=== PATIENT | male | born 1975 | race Caucasian/White ===

== ENCOUNTER 2019-11-04 20:02 | Inpatient (IN) | payer BC ==
[~2019-11-04] VITALS: Ht 172.7 cm; Wt 109.9 kg
[2019-11-04 20:24] VITALS: BP 104/68
[2019-11-04 20:30] LABS: BASO # 0.1 10*3/uL (0.0-0.1); BASO % 0.7 % (0.0-1.0); EOS # 0.1 10*3/uL (0.0-0.4); EOS % 1.1 % (1.0-4.0); HEMATOCRIT 43.2 % (42.0-52.0); LYMPH # 1.3 10*3/uL (1.3-4.4); LYMPH % 12.7 % (27.0-41.0); MEAN CELL VOLUME 95.6 fl (80.0-94.0); MEAN CORPUSCULAR HGB CONC 34.5 g/dl (33.0-37.0); MEAN PLATELET VOLUME 9.7 fl (9.6-12.3); MONO # 0.8 10*3/uL (0.1-1.0); MONO % 7.3 % (3.0-9.0); NEUT # 8.2 10*3/uL (2.3-7.9); NEUT % 77.8 % (47.0-73.0); PLATELET COUNT AUTOMATED 141 10*3/uL (130-400); RED BLOOD COUNT 4.52 10*6/uL (4.50-5.90); RED CELL DISTRI WIDTH 12.6 % (0-14.5); WHITE BLOOD COUNT 10.5 10*3/uL (4.8-10.8)
[2019-11-04 20:44] LABS: ACT PARTIAL THROMBO TIME 29.9 SECONDS (20.0-32.1); ALBUMIN 3.8 gm/dl (3.1-4.5); ALKALINE PHOSPHATASE 39 U/L (45-117); BUN 15 mg/dl (7-24); CHLORIDE 103 mmol/L (98-107); CREATININE 1.07 mg/dL (0.70-1.30); INTERNATIONAL NORM RATIO 1.2 (2.0-3.5); POTASSIUM 3.4 mmol/L (3.5-5.1); SGOT/AST 35 IU/L (3-35); SGPT/ALT 49 U/L (12-78); SODIUM 137 mmol/L (136-145); TOTAL PROTEIN 7.1 gm/dL (6.4-8.2)
[2019-11-04 20:45] LABS: TROPONIN I 0.018 ng/ml (<0.045)
[2019-11-05] VITALS (7 sets, daily range): BP systolic 92–115; BP diastolic 51–63
--- NOTE | 2019-11-05 | NUR ---
A 44, admitted to , under the services of SYDNEY Doss DO with a diagnosis of A FIB. Chief complaint is WHILE RUNNING [place] AT 1999, PATIENT DEVELOPED ;EFT SHOULDER AND NECK PAIN RADIATING INTO RIGHT JAW. STATES UNABLE TO FOCUS. Patient arrived via bed from ER. Monitor applied. Initial assessment completed. Vital signs taken and recorded. SYDNEY DOSS DO / DR CARY notified of admission to the unit. Orders received. See assessment for past medical history, medications and allergies. Patient and/or family oriented to unit. [facility] visitation policy reviewed. Clothing/patient valuable form completed. [employer]ES
[2019-11-05] MEDS ORDERED: FUROSEMIDE40 MG PO (00:17)
[2019-11-05] MEDS ORDERED: DIGOX125 MCG PO (00:18)
[2019-11-05] MEDS ORDERED: XARE20MG PO (00:19)
[2019-11-05] MEDS ORDERED: ENTRESTO 24 MG1 EACH PO (00:19)
[2019-11-05] MEDS ORDERED: ALLOPURINOL100 MG PO (00:20)
[2019-11-05] MEDS ORDERED: TRAZODONE150 MG PO (00:20)
[2019-11-05] MEDS ORDERED: COREG25 MG PO (00:21)
[2019-11-05] MEDS ORDERED: CARVEDILOL25 MG PO (00:21)
--- NOTE | 2019-11-05 01:45 | NUR ---
REQUESTING HOME MEDS. DR CARY CONTACTED AND INFORMED MED REC UP TO DATE
--- NOTE | 2019-11-05 02:20 | NUR ---
[facility] CONTACTED REGARDING PATIENT REQUESTING MEDS AND MEDS NOT YET PROFILED. WILL PROFILE
--- NOTE | 2019-11-05 02:20 | NUR ---
DR CAMARENA CONTACTED AND INFORMED OF CRITICAL TROPONIN 0.082. CARDIOLOGY ON CONSULT. PATIENT DENIES CHEST PAIN
--- NOTE | 2019-11-05 02:30 | NUR ---
MEDS PROVIDED, SEE EMAR.
--- NOTE | 2019-11-05 03:15 | NUR ---
SLEEPING. NO DISTRESS NOTED. RESPIRATIONS EASY. CALL LIGHT WITHIN REACH
--- NOTE | 2019-11-05 05:27 | NUR ---
C/O PRESSURE TO NECK. DENIES CHEST PAIN. HR 56. BP 103/55. MEDICATED WITH MORPHINE IV PER PRN ORDER. WILL MONITOR
[2019-11-05 06:15] LABS: BASO % 0.5 % (0.0-1.0); EOS # 0.1 10*3/uL (0.0-0.4); EOS % 1.4 % (1.0-4.0); HEMATOCRIT 40.9 % (42.0-52.0); LYMPH # 1.6 10*3/uL (1.3-4.4); LYMPH % 27.5 % (27.0-41.0); MEAN CELL VOLUME 97.4 fl (80.0-94.0); MEAN CORPUSCULAR HGB 33.1 pg (27.0-31.0); MEAN PLATELET VOLUME 9.8 fl (9.6-12.3); MONO # 0.6 10*3/uL (0.1-1.0); MONO % 9.3 % (3.0-9.0); NEUT # 3.6 10*3/uL (2.3-7.9); NEUT % 61.1 % (47.0-73.0); PLATELET COUNT AUTOMATED 132 10*3/uL (130-400); RED CELL DISTRI WIDTH 12.6 % (0-14.5); WHITE BLOOD COUNT 5.9 10*3/uL (4.8-10.8)
--- NOTE | 2019-11-05 06:15 | NUR ---
STATES RELIEF FROM EARLIER MEDS. CALL LIGHT WITHIN REACH. NO FURTEHR VOICED COMPLAINTS
[2019-11-05 06:20] LABS: ALBUMIN 3.5 gm/dl (3.1-4.5); BUN 13 mg/dl (7-24); CHLORIDE 105 mmol/L (98-107); POTASSIUM 3.3 mmol/L (3.5-5.1); SODIUM 144 mmol/L (136-145)
[2019-11-05 06:29] LABS: ALKALINE PHOSPHATASE 37 U/L (45-117); CHOLESTEROL 141 mg/dL (<200); CREATININE 0.97 mg/dL (0.70-1.30); FREE T4 1.22 ng/dl (0.76-1.46); HDL CHOLESTEROL 33 mg/dl (40-60); LDL CHOLESTEROL 86 mg/dL (9-159); SGOT/AST 21 IU/L (3-35); SGPT/ALT 40 U/L (12-78); TOTAL PROTEIN 6.4 gm/dL (6.4-8.2); TRIGLYCERIDES 112 mg/dl (<150); VLDL CHOLESTEROL 22 mg/dL (6-40)
--- NOTE | 2019-11-05 07:15 | NUR ---
ATTEMPTED TO REACH CARDIOLOGY REGARDING CONSULT. MESSAGE LEFT WITH ANSWERING SERVICE. AWAITING RETURN CALL
--- NOTE | 2019-11-05 08:22 | NUR ---
HELD COREG PO FOR BP 105/56.
--- NOTE | 2019-11-05 08:22 | NUR ---
MEDICATED WITH PRN PO TYLENOL FOR HEAD AND NECK ACHE.
--- NOTE | 2019-11-05 09:00 | NUR ---
Tapper Helper in to talk to patient. Patient states lives at home alone. There are 0 steps in the home. Physician: CLAUDIA in [place] Pharmacy: print or a local pharmacy here in town Home health services: none Patient's level of ADLs: INDEPENDENT Patient has working utilities: yes DME: none Follow-up physician's appointment after d/c: will be made by the hospitalist nurse director upon discharge Does patient want to access PORTAL?: no Discharge plan discussed with patient. He lives at home alone. 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 He states he is from [place]. He is independent in his ADLs and ambulation. Discussed home health care services and he denies any home needs at this time. When medically stable he will be discharged to home. He states he will provide his own transportation on discharge as his car is here. SANDRA AKERS
--- NOTE | 2019-11-05 09:00 | NUR ---
PRN PO TYLENOL EFFECTIVE, PER PATIENT.
--- NOTE | 2019-11-05 09:44 | NUR ---
DR. GREGG NOTIFIED OF MORNING BLOOD PRESSURE AND COREG 50MG PO WAS HELD. NO FURTHER ORDERS OBTAINED.
--- NOTE | 2019-11-05 12:22 | NUR ---
[facility] REP RE: PACER INTERROGATION REQUESTED BY DR. GREEN.
--- NOTE | 2019-11-05 12:26 | NUR ---
CHRISTIANE REP CALLED, HE WILL BE IN EARLY TOMORROW MORNING OR LATER TODAY IF TODAY IS POSSIBLE.
--- NOTE | 2019-11-05 13:10 | NUR ---
MEDICATED WITH PRN PO NORCO FOR HEADACHE, PATIENT THEN TO RADIOLOGY BY WHEELCHAIR FOR CT HEAD.
--- NOTE | 2019-11-05 13:50 | NUR ---
PRN PO NORCO SOMEWHAT EFFECTIVE, PER PATIENT.
--- NOTE | 2019-11-05 19:35 | NUR ---
PATIENT ASSESSMENT COMPLETED AT THIS TIME WITHOUT INCIDENT, PATIENT A&O X3. PATIENT DENIES ANY CHEST PAIN/PRESSURE OR SHORTNESS OF BREATH AT THIS TIME. PATIENT REQUESTING PAIN MEDICATION AT THIS TIME FOR CONSISTANT HEADACHE AND NECK PAIN. CALL LIGHT WITHIN REACH, WILL CONTINUE TO MONITOR.
--- NOTE | 2019-11-05 20:25 | NUR ---
PRN NORCO GIVEN AT THIS TIME FOR COMPLAINT OF 3/10 PERSISTANT HEADACHE AND NECK PAIN. PATIENT A&O X3 AT THIS TIME, CALL LIGHT WITHIN REACH, WILL CONTINUE TO MONITOR.
--- NOTE | 2019-11-05 21:15 | NUR ---
PATIENT STATED THAT PAIN REMAINS AT A 3/10 POST NORCO ADMINISTRATION, PATIENT OFFERED PRN TYLENOL AND MORPHINE AT THIS TIME BUT HE DENIED ANY MORE MEDICATION. CALL LIGHT WITHIN REACH WILL CONTINUE TO MONITOR.
[2019-11-06 00:05] VITALS: BP 95/57
--- NOTE | 2019-11-06 02:50 | NUR ---
PATIENT RESTING IN BED AT THIS TIME IN A POSITION OF COMFORT. NO SIGNS OR SYMPTOMS OF PAIN OR DISTRESS NOTED. RESPIRATIONS EASY AND UNLABORED. CALL LIGHT WITHIN REACH, WILL CONTINUE TO MONITOR.
[2019-11-06 06:25] LABS: BASO % 0.7 % (0.0-1.0); EOS # 0.1 10*3/uL (0.0-0.4); EOS % 1.6 % (1.0-4.0); HEMATOCRIT 38.4 % (42.0-52.0); LYMPH # 1.5 10*3/uL (1.3-4.4); MEAN CELL VOLUME 97.7 fl (80.0-94.0); MEAN CORPUSCULAR HGB 33.6 pg (27.0-31.0); MEAN CORPUSCULAR HGB CONC 34.4 g/dl (33.0-37.0); MEAN PLATELET VOLUME 9.5 fl (9.6-12.3); MONO # 0.5 10*3/uL (0.1-1.0); MONO % 9.1 % (3.0-9.0); NEUT # 3.5 10*3/uL (2.3-7.9); NEUT % 62.4 % (47.0-73.0); PLATELET COUNT AUTOMATED 111 10*3/uL (130-400); RED BLOOD COUNT 3.93 10*6/uL (4.50-5.90); RED CELL DISTRI WIDTH 12.4 % (0-14.5); WHITE BLOOD COUNT 5.6 10*3/uL (4.8-10.8)
[2019-11-06 06:55] LABS: BUN 15 mg/dl (7-24); CHLORIDE 107 mmol/L (98-107); POTASSIUM 3.5 mmol/L (3.5-5.1); SODIUM 141 mmol/L (136-145)
[2019-11-06 06:57] LABS: CREATININE 0.97 mg/dL (0.70-1.30)
[2019-11-06 08:00] VITALS: BP 94/54
--- NOTE | 2019-11-06 08:30 | NUR ---
0800 ASSESSMENT COMPLETE. PT RESTING IN BED, DENIES C/O AT THIS TIME. BED IN LOW LOCKED POSITION, CALL LIGHT WITHIN REACH. WILL CONTINUE TO MONITOR PT.
[2019-11-06 12:00] VITALS: BP 98/61
[2019-11-06 16:00] VITALS: BP 103/59
--- NOTE | 2019-11-06 19:15 | NUR ---
24 HR chart check completed.
[2019-11-06 20:00] VITALS: BP 116/69
--- NOTE | 2019-11-06 21:00 | NUR ---
RESTING IN BED WATCHING TV WITH NO DISTRESS NOTED. RESPIRATIONS EASY. LUNGS DIMINISHED, CLEAR. PULSE OX 96% RA. CALL LIGHT WITHIN REACH. NO VOICED COMPLAINTS.
--- NOTE | 2019-11-06 22:00 | NUR ---
NPO STATUS AFTER MIDNIGHT DISCUSSED FOR TESTING IN AM, PATIENT VOICES UNDERSTANDING
[2019-11-07] VITALS: BP 106/66
--- NOTE | 2019-11-07 | NUR ---
SLEEPING. NO DISTRESS NOTED. RESPIRATIONS EASY. VSS. CALL LIGHT WITHIN REACH
--- NOTE | 2019-11-07 06:00 | NUR ---
SLEPT THROUGHOUT NIGHT WITH NO DISTRESS NOTED. RESPIRATIONS EASY. CALL LIGHT WITHIN REACH. NO VOICED COMPLAINTS THIS SHIFT. NPO STATUS MAINTAINED FOR TESTING THIS AM
[2019-11-07 06:58] LABS: BASO % 0.5 % (0.0-1.0); EOS # 0.1 10*3/uL (0.0-0.4); EOS % 1.6 % (1.0-4.0); HEMATOCRIT 37.1 % (42.0-52.0); LYMPH # 1.5 10*3/uL (1.3-4.4); LYMPH % 26.8 % (27.0-41.0); MEAN CELL VOLUME 96.1 fl (80.0-94.0); MEAN CORPUSCULAR HGB 33.2 pg (27.0-31.0); MEAN CORPUSCULAR HGB CONC 34.5 g/dl (33.0-37.0); MEAN PLATELET VOLUME 10.5 fl (9.6-12.3); MONO # 0.6 10*3/uL (0.1-1.0); MONO % 10.9 % (3.0-9.0); NEUT # 3.3 10*3/uL (2.3-7.9); NEUT % 59.8 % (47.0-73.0); PLATELET COUNT AUTOMATED 117 10*3/uL (130-400); RED BLOOD COUNT 3.86 10*6/uL (4.50-5.90); RED CELL DISTRI WIDTH 12.2 % (0-14.5); WHITE BLOOD COUNT 5.5 10*3/uL (4.8-10.8)
[2019-11-07 07:17] LABS: BUN 15 mg/dl (7-24); CHLORIDE 107 mmol/L (98-107); CREATININE 0.99 mg/dL (0.70-1.30); POTASSIUM 3.5 mmol/L (3.5-5.1); SODIUM 140 mmol/L (136-145)
[2019-11-07 08:00] VITALS: BP 100/56
--- NOTE | 2019-11-07 08:00 | NUR ---
Patient resting quietly with no c/o discomfort. Respirations easy and regular. NPO for stress test later this am. Vital signs stable. No overt distress. LAILA LAI R
--- NOTE | 2019-11-07 10:04 | NUR ---
PT OFF UNIT AT STRESS TEST.
--- NOTE | 2019-11-07 10:34 | NUR ---
INFORMED CONSENT SIGNED FOR LEXISCAN STRESS TEST WITH DR. GREEN. RESTING EKG A-FIB/PACED, HR 70, BP 108/70/ PULSE OX 97% AND LUNGS CLEAR. COMPLETED ONE MINUTE OF LEXISCAN PROTOCOL RECEIVING LEXISCAN 0.4MG OVER 10 SECONDS. RARE PVC NOTED WITH NO ST CHANGES. PT C/O WARM FEELING AND FELT DISORIENTED. LAST RECOVERY HR 71, BP 94/66. WAITING NUCLEAR SCANNING IN STABLE CONDITION.
--- NOTE | 2019-11-07 11:43 | NUR ---
PT BACK FROM STRESS TEST
[2019-11-07 12:00] VITALS: BP 114/76
--- NOTE | 2019-11-07 12:08 | NUR ---
CDL B DRIVER IN TO SEE PT. PT CONTINUES TO DENY NEEDS AT HOME. STATES HE WILL RETURN HOME WHEN MEDICALLY STABLE. WILL CONTINUE TO FOLLOW.
[2019-11-07] MEDS ORDERED: KLOR-CON M2020 ME1 PO (13:10)
[2019-11-07] MEDS ORDERED: COREG12.5 M1 PO (13:10)
[2019-11-07] MEDS ORDERED: ENTRESTO 24 MG1 EACH PO (13:10)
[2019-11-07] MEDS ORDERED: FUROSEMIDE40 MG PO (13:35)
--- NOTE | 2019-11-07 15:04 | NUR ---
Discharge instructions reviewed with patient/family. Patient receptive and verbalizes understanding. Follow-up care arranged. Written instructions given to patient/family. LAILA LAI
== END 2019-11-07 15:04 | disposition home or self-care (01) | DRG 206 ==
LOC: ED 20:02 → 5E 21:42 → EDHOLD 21:42 → 5E 22:46
PROVIDERS: Emergency Medicine Emergency Medical Services; Hospitalist; Internal Medicine; ADMIT Emergency Medicine
PROC: 4B02XTZ Measurement of Cardiac Defibrillator, External Approach (ICD-10-PCS; principal; 2019-11-06)
PROC: 3E073KZ Introduction of Other Diagnostic Substance into Coronary Artery, Percutaneous Approach (ICD-10-PCS; 2019-11-07)
PROC: 4A02XM4 Measurement of Cardiac Total Activity, External Approach (ICD-10-PCS; 2019-11-07)
DX: M94.0 Chondrocostal junction syndrome [Tietze] (principal); I42.8 Other cardiomyopathies; I47.2 Ventricular tachycardia; M1A.0711 Idiopathic chronic gout, right ankle and foot, with tophus (tophi); E87.6 Hypokalemia; R79.89 Other specified abnormal findings of blood chemistry; I51.7 Cardiomegaly; I34.0 Nonrheumatic mitral (valve) insufficiency; R00.1 Bradycardia, unspecified; R51 Headache; D69.6 Thrombocytopenia, unspecified; Z83.3 Family history of diabetes mellitus; Z82.49 Family history of ischemic heart disease and other diseases of the circulatory system; Z79.899 Other long term (current) drug therapy; Z79.01 Long term (current) use of anticoagulants; Z95.810 Presence of automatic (implantable) cardiac defibrillator; Z03.818 Encounter for observation for suspected exposure to other biological agents ruled out; I48.91 Unspecified atrial fibrillation